=== PATIENT | male | born 1940 | race Caucasian/White ===

== ENCOUNTER → 2017-11-28 | Outpatient (CLI) | payer BC ==
[~2017-11-28] MED LIST: ALT/25 PO; ASPI81TA28 PO; ATOR-24 PO; CARV3.122 PO; DXP/75 PO; LANS30CA63 PO; NTRGSL/4 UT; TRAM-10 PO
== END | disposition home or self-care (01) ==
LOC: C.LABSPEC 17:06
PROVIDERS: ATTEND Physician Assistant
DX: L82.0 Inflamed seborrheic keratosis (principal)